=== PATIENT | male | born 1995 | race Caucasian/White ===

== ENCOUNTER 2018-02-03 19:53 | Emergency (ER) | payer SELFPAY ==
--- NOTE | 2018-02-03 19:58 | EDM.PDOC ---
ED HPI GENERAL MEDICAL PROBLEM - General Chief Complaint: Upper Extremity Injury/Pain Stated Complaint: right arm pain Time Seen by Provider: 02/03/18 19:55 Source of Information: Reports: Patient. Denies: Old Records (No [facility] records available) History Limitations: Reports: No Limitations - History of Present Illness INITIAL COMMENTS - FREE TEXT/NARRATIVE: The patient was brought to the emergency room via private automobile by his friend for evaluation of a suspected spider bite on his right arm, which occurred at home, with patient noticing some increasing pain and redness since about 8 AM yesterday. He did take 800 mg of ibuprofen yesterday and has been treating the injury with Neosporin. His last tetanus booster was about 3 years ago by his history. No history of foreign body, drainage, or other injuries. The patient denies any chest pain/pressure, heart flutter, dizziness, orthostasis, orthopnea, diaphoresis, paresthesias, recent decreased exercise tolerance, or any other anginal-type symptoms. No recent history of abdominal pain, heartburn, nausea, diarrhea, melena, gross hematochezia, or any food intolerance, including fatty foods, etc.. The patient also denies any recent fever, cough, wheezing, dyspnea, etc.. Onset: Gradual Onset Date: 02/02/18 Onset Time: 08:00 Duration: Constant, Getting Worse Location: Reports: Upper Extremity, Right. Denies: Radiates to Quality: Reports: Ache, Pressure, Throbbing Severity: Moderate Improves with: Reports: None Worsens with: Reports: None Context: Reports: Other (As above) Associated Symptoms: Reports: Rash. Denies: Confusion, Chest Pain, Cough, Diaphoresis, Fever/Chills, Headaches, Loss of Appetite, Malaise, Nausea/Vomiting , Syncope, Weakness Treatments [employer] TE[employer]ER: Reports: Home Treatments, NSAIDS right wrist/forearm Pain Score (Numeric/FACES): 7 - Related Data Allergies Allergy/AdvReac Type Severity Reaction Status Date / Time No Known Allergies Allergy Verified 02/03/18 19:58 Home Meds: Home Meds Amoxicillin/Potassium Clav [Augmentin 875-125 Tablet] 1 each PO BIDMEALS #20 tablet 02/03/18 [Rx] Past Medical History - Past Health History Medical/Surgical History: Denies Medical/Surgical History Social & Family History - Tobacco Use Smoking Status *Q: Current Every Day Smoker Tobacco Use Within Last Twelve Months: Cigarettes Years of Tobacco use: 11 Packs/Tins Daily: 0.8 Packs/Tins Daily Comment: Started smoking at age 11 with current use of 3/4 packs per day and maximum use of one pack per day Used Tobacco, but Quit: No Smoking Cessation Information Provided To Patient: Yes Second Hand Smoke Exposure: Yes Source of Second Hand Smoke Exposure: Girlfriend smokes Second Hand Smoke Education Provided: Yes - Living Situation & Occupation Living situation: Reports: with Significant 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 ED EXAM, GENERAL - Physical Exam Exam: See Below Exam Limited By: No Limitations General Appearance: Alert, WD/WN, No Apparent Distress Head: Atraumatic, Normocephalic. No: Facial Swelling, Facial Tenderness, Sinus Tenderness Neck: Normal Inspection, Supple, Non-Tender, Full Range of Motion. No: Lymphadenopathy (L), Lymphadenopathy (R), Thyromegaly Respiratory/Chest: No Respiratory Distress, Lungs Clear, Normal Breath Sounds, No Accessory Muscle Use, Chest Non-Tender. No: Pleural Rub, Retractions Cardiovascular: Normal Peripheral Pulses, No Edema, No Gallop, No JVD, No Murmur , No Rub, Tachycardia (Regular rhythm, improved borderline tachycardia secondary to fever). No: Gallop/S3, Gallop/S4, Friction Rub Peripheral Pulses: 2+: Radial (L), Radial (R) GI/Abdominal: Normal Bowel Sounds, Soft, Non-Tender, No Organomegaly, No Distention, No Abnormal Bruit, No Mass. No: Guarding (Male) Exam: Deferred Rectal (Males) Exam: Deferred Back Exam: Normal Inspection, Full Range of Motion. No: CVA Tenderness (L), CVA Tenderness (R), Muscle Spasm Extremities: Normal Range of Motion, Arm Pain (As below), Increased Warmth ( Mild at infection site), Redness (4 cm in diameter centralized area of +3 erythema with evidence of insect bite in this region with additional surrounding 4 cm area of +1 erythema however no lymphangitis, drainage, or evidence of foreign body. Moderate localized palpation pain to the area. Negative compartment syndrome). No: Slow Capillary Refill, Joint Swelling, Jena's Sign Neurological: Alert, Oriented, CN II-XII Intact, Normal Cognition, Normal Gait, No Motor/Sensory Deficits Psychiatric: Normal Affect, Normal Mood Skin Exam: Erythema (As above), Stud(s) (Inferior to lower lip bilaterally), Tattoo(s) (Multiple), Wound/Incision (As above). No: Diaphoretic, Ecchymosis, Lymphangitis Lymphatic: No Adenopathy Course - Vital Signs Last Recorded V/S: Last Vital Signs Temp 37.6 C 02/03/18 19:58 Pulse 120 H 02/03/18 19:58 Resp 16 02/03/18 19:58 BP 118/67 02/03/18 19:58 Pulse Ox 97 02/03/18 19:58 Vital Signs - 24 hr 02/03/18 19:58 Temperature [ 37.6 C Temporal] Pulse, 120 H Peripheral [ Left Pulse Oximetry] Respiratory 16 Rate Blood Pressure 118/67 [Left Upper Arm ] O2 Sat by Pulse 97 Oximetry - Orders/Labs/Meds Orders: Active Orders 24 hr Category Date Time Status Obtain Past Medical Record [OM.PC] Routine Oth 02/03/18 19:58 Active Labs: None Meds: Medications Discontinued Medications Generic Name Dose Route Start Last Admin Trade Name Claytonq PRN Reason Stop Dose Admin Ceftriaxone Sodium 1 gm 02/03/18 19:59 02/03/18 20:12 Rocephin IM 02/03/18 20:00 1 gm ONETIME ONE Administration Lidocaine HCl 5 ml 02/03/18 19:58 02/03/18 20:12 Xylocaine-Mpf 1% INJECT 02/03/18 19:59 5 ml ONETIME ONE Administration Methylprednisolone Acetate 80 mg 02/03/18 19:59 02/03/18 20:11 Depo-Medrol IM 02/03/18 20:00 80 mg ONETIME ONE Administration - Radiology Interpretation Free Text/Narrative:: None Departure - Departure Time of Disposition: 20:30 Disposition: Home, Self-Care 01 Condition: Good Clinical Impression: Tobacco abuse counseling Cellulitis Qualifiers: Site of cellulitis: extremity Site of cellulitis of extremity: upper extremity Laterality: right Qualified Code(s): L03.113 - Cellulitis of right upper limb - Discharge Information Prescriptions: Amoxicillin/Potassium Clav [Augmentin 875-125 Tablet] 1 each PO BIDMEALS #20 tablet Instructions: Amoxicillin; Clavulanic Acid tablets, Ceftriaxone injection, Cellulitis, Adult, [id number], Methylprednisolone Suspension for Injection Forms: ED Department Discharge Additional Instructions: 1. Follow up with your regular provider in 10-14 days as needed, if symptoms persist. 2. Tylenol 650 mg by mouth every 4 hours and/or OTC ibuprofen 2-3 tabs by mouth every 6 hours with food as directed./needed. 3. Antibacterial soap wash/soak with subsequent antibacterial dressing such as Neosporin, etc. as directed 2 times per day until the wound site completely heals. Keep the area clean and dry with activity restrictions as discussed. 4. Stop all tobacco use JARED as directed/per provided information and consider contacting Quit LIne, etc.. - Problem List & Annotations (1) Cellulitis SNOMED Code(s): 944956019 Code(s): L03.90 - CELLULITIS, UNSPECIFIED Status: Acute Priority: High Current Visit: Yes Onset Date: ~02/02/18 Annotation/Comment:: Tetanus booster is up-to-date as above. Wound care instructions given. Suspected spider/ insect bite as above. Augmentin therapy to be continued as an outpatient basis with IM Rocephin given today. Close follow-up by regular provider, if symptoms are refractory to therapy. He did initially request a sling, however arm mobility is important to improve circulation in infection site. IM Toradol not given secondary to medication shortage continuation of OTC NSAIDs, etc. as per discharge instructions. Qualifiers: Site of cellulitis: extremity Site of cellulitis of extremity: upper extremity Laterality: right Qualified Code(s): L03.113 - Cellulitis of right upper limb (2) Tobacco abuse counseling SNOMED Code(s): 804831792, 720928605, 253749588 Code(s): Z71.6 - TOBACCO ABUSE COUNSELING Status: Chronic Priority: Medium Current Visit: Yes Annotation/Comment:: Stop all tobacco use JARED as directed/per provided information and consider contacting Quit LIne, etc.. - Problem List Review Problem List Initiated/Reviewed/Updated: Yes - My Orders Last 24 Hours: My Active Orders 02/03/18 19:58 Obtain Past Medical Record [OM.PC] Routine - Assessment/Plan Last 24 Hours: My Active Orders 04/17/18 19:58 Obtain Past Medical Record [OM.PC] Routine Assessment:: As above Plan: As above. Extensive precautions were given to the patient, who is in agreement with the treatment plan. See Patient Instructions for further treatment and plan.
[2018-02-03] MEDS ORDERED: cefTRIAXone 1 GM Vial IM ONE (19:59)
[2018-02-03] MEDS ORDERED: methylPREDNISolone Acetate 80 MG/ML SDV IM ONE (19:59)
== END 2018-02-03 20:32 | disposition home or self-care (01) ==
LOC: LL.ED 19:53
DX: L03.113 Cellulitis of right upper limb (principal); F17.210 Nicotine dependence, cigarettes, uncomplicated; Z71.6 Tobacco abuse counseling
CPT/HCPCS: 96372; 99283; J0696; J1040